=== PATIENT | male | born 1995 ===

== ENCOUNTER → 2019-09-26 | Outpatient (CLI) | payer OTHER ==
[2019-09-26 11:06] LABS: BASOPHILS ABSOLUTE AUTO 0.03 K/mm3 (0.00-0.23); BASOPHILS PERCENT AUTO 1 % (0-2); EOSINOPHILS ABSOLUTE AUTO 0.13 K/mm3 (0.00-0.68); EOSINOPHILS PERCENT AUTO 2 % (0-6); Hematocrit 42.7 % (37.0-53.0); Hemoglobin 15.2 g/dL (13.5-17.5); IMMATURE GRAN ABSOLUTE AUTO 0.01 K/mm3 (0.00-0.10); IMMATURE GRAN PERCENT AUTO 0 % (0-1); LYMPHOCYTES ABSOLUTE AUTO 2.07 K/mm3 (0.84-5.20); LYMPHOCYTES PERCENT AUTO 37 % (21-46); MONOCYTES ABSOLUTE AUTO 0.54 K/mm3 (0.16-1.47); MONOCYTES PERCENT AUTO 10 % (4-13); Mean Corpuscular HGB 30.8 pg (26.0-34.0); Mean Corpuscular HGB Conc 35.6 g/dL (31.5-36.5); Mean Corpuscular Volume 87 fL (80-100); Mean Platelet Volume 11.4 fL (9.1-12.4); NEUTROPHILS PERCENT AUTO 50 % (41-73); Platelet Count 189 K/mm3 (150-400); RDW Standard Deviation 37.8 fL (35.1-46.3); Red Blood Cell Count 4.93 M/mm3 (4.30-5.90); White Blood Cell Count 5.58 K/mm3 (4.00-11.30)
[2019-09-26 11:22] LABS: Alanine Aminotransfer (ALT/SGP 14 U/L (12-78); Albumin, Blood 4.6 g/dL (3.4-5.0); Albumin/Globulin Ratio 1.5 (0.8-1.8); Alk Phos 84 U/L (40-126); Anion Gap 10 mmol/L (6-16); Aspartate Aminotrans (AST/SGOT 16 U/L (12-37); Bilirubin, Total 0.7 mg/dL (0.1-1.0); Blood Urea Nitrogen 15 mg/dL (8-24); Bun/Creatinine Ratio 17.2 (12.0-20.0); CO2, Blood 27 mmol/L (21-32); Calcium, Blood 9.2 mg/dL (8.5-10.1); Chloride, Blood 105 mmol/L (98-108); Creatinine, Blood 0.87 mg/dL (0.60-1.20); Glomerular Filtration Rate >60 (60-); Glucose, Blood 98 mg/dL (70-99); Potassium, Blood 3.9 mmol/L (3.5-5.5); Sodium, Blood 142 mmol/L (136-145); Total Protein, Blood 7.6 g/dL (6.4-8.2)
== END | disposition home or self-care (01) ==
LOC: LAB SHORT 11:02 → LAB EV 11:02
PROVIDERS: Family Medicine
DX: R55 Syncope and collapse (principal)
CPT/HCPCS: 80053; 85025

== ENCOUNTER → 2020-02-07 | Outpatient (CLI) | payer OTHER | END | disposition home or self-care (01) | LOC: LAB SHORT 07:54 → LAB EV 07:54 | DX: J02.9 Acute pharyngitis, unspecified (principal) | CPT/HCPCS: 87081 ==

== ENCOUNTER 2020-06-24 09:31 | Emergency (ER) | payer OTHER ==
[~2020-06-24] VITALS: Ht 177.8 cm; Wt 67.1 kg
== END 2020-06-24 10:16 | disposition home or self-care (01) ==
LOC: ER 09:31
DX: J02.9 Acute pharyngitis, unspecified (principal)
CPT/HCPCS: 99282

== ENCOUNTER 2020-07-04 16:21 | Emergency (ER) | payer OTHER ==
[~2020-07-04] VITALS: Ht 177.8 cm; Wt 70.3 kg
[2020-07-04] MEDS ORDERED: CEPH500 PO (16:29)
[2020-07-04] MEDS ORDERED: Prozac20 MG PO (16:31)
== END 2020-07-04 16:32 | disposition home or self-care (01) ==
LOC: ER 16:21
DX: L03.114 Cellulitis of left upper limb (principal); S60.512A Abrasion of left hand, initial encounter; F17.200 Nicotine dependence, unspecified, uncomplicated; W45.8XXA Other foreign body or object entering through skin, initial encounter
CPT/HCPCS: 99283

== ENCOUNTER 2021-03-04 08:54 | Emergency (ER) | payer OTHER ==
[~2021-03-04] VITALS: Ht 177.8 cm; Wt 70.3 kg
[~2021-03-04 08:54] MED LIST: CEPH500 PO; Prozac20 MG PO
== END 2021-03-04 09:27 | disposition home or self-care (01) ==
LOC: ER 08:54
DX: S61.411D Laceration without foreign body of right hand, subsequent encounter (principal); F17.200 Nicotine dependence, unspecified, uncomplicated

== ENCOUNTER 2021-03-10 14:17 | Emergency (ER) | payer OTHER ==
[~2021-03-10] VITALS: Ht 175.3 cm; Wt 65.8 kg
[2021-03-10] MEDS ORDERED: CEPH500 PO (15:59)
== END 2021-03-10 16:04 | disposition home or self-care (01) ==
LOC: ER 14:17
DX: L03.011 Cellulitis of right finger (principal)
CPT/HCPCS: 99283

== ENCOUNTER 2022-01-05 17:06 | Observation (INO) | payer OTHER ==
[~2022-01-05] VITALS: Ht 175.3 cm; Wt 61.2 kg
[2022-01-05 17:52] LABS: BASOPHILS ABSOLUTE AUTO 0.02 K/mm3 (0.00-0.23); BASOPHILS PERCENT AUTO 0 % (0-2); EOSINOPHILS ABSOLUTE AUTO 0.05 K/mm3 (0.00-0.68); EOSINOPHILS PERCENT AUTO 1 % (0-6); IMMATURE GRAN ABSOLUTE AUTO 0.01 K/mm3 (0.00-0.10); IMMATURE GRAN PERCENT AUTO 0 % (0-1); LYMPHOCYTES ABSOLUTE AUTO 1.46 K/mm3 (0.84-5.20); LYMPHOCYTES PERCENT AUTO 23 % (21-46); MONOCYTES PERCENT AUTO 8 % (4-13); Mean Corpuscular HGB 20.4 pg (26.0-34.0); Mean Corpuscular HGB Conc 29.5 g/dL (31.5-36.5); Mean Corpuscular Volume 69 fL (80-100); Mean Platelet Volume 9.4 fL (9.1-12.4); NEUTROPHILS ABSOLUTE AUTO 4.19 K/mm3 (1.96-9.15); NEUTROPHILS PERCENT AUTO 67 % (41-73); Platelet Count 341 K/mm3 (150-400); RDW Coefficient Variation 17.1 % (11.7-14.2); RDW Standard Deviation 43.4 fL (35.1-46.3); Red Blood Cell Count 2.55 M/mm3 (4.30-5.90); White Blood Cell Count 6.23 K/mm3 (4.00-11.30)
[2022-01-05 17:55] LABS: Hematocrit 17.6 % (37.0-53.0); Hemoglobin 5.2 g/dL (13.5-17.5)
[2022-01-05 18:28] LABS: Albumin, Blood 4.1 g/dL (3.4-5.0); Albumin/Globulin Ratio 1.4 (0.8-1.8); Bilirubin, Total 0.2 mg/dL (0.1-1.0); Bun/Creatinine Ratio 12.3 (12.0-20.0); Calcium, Blood 8.9 mg/dL (8.5-10.1); Creatinine, Blood 0.98 mg/dL (0.60-1.20); Globulin, Blood 2.9 g/dL (2.2-4.0); Potassium, Blood 3.8 mmol/L (3.5-5.5)
[2022-01-05 20:16] LABS: Percent Saturation 1.4 % (20.0-50.0)
--- NOTE | 2022-01-05 22:34 | NUR ---
PATIENT TO ROOM PCU 1 FROM ER. PATIENT IS ALERT AND ORIENTED X4, INDEPENDENT IN ROOM. 02 SATS 100% ON RA, DENIES ANY SOB. HR SR AT 77, BP STABLE. PATIENT DENIES CP/PRESSURE. NO LONGER EXPERIENCING DIZZINESS. REPORTS HAVING DARK RED AND BRIGHT RED STOOL FREQUENTLY FOR THE LAST 4 DAYS. INDEPENDENT IN ROOM, ASSISTANCE WITH IV POLE TO THE BATHROOM. SECOND UNIT OF OF BLOOD CURRENTLY INFUSING. PATIENT STATES HE WANTS TO LEAVE ONCE BLOOD IS DONE TRANSFUSING.
[2022-01-06 00:42] LABS: Hematocrit 22.6 % (37.0-53.0); Hemoglobin 7.1 g/dL (13.5-17.5)
[2022-01-06 01:02] LABS: Bun/Creatinine Ratio 10.4 (12.0-20.0); Calcium, Blood 8.4 mg/dL (8.5-10.1); Creatinine, Blood 0.96 mg/dL (0.60-1.20); Potassium, Blood 3.6 mmol/L (3.5-5.5)
--- NOTE | 2022-01-06 01:30 | NUR ---
PATIENT REQUESTING TO LEAVE AMA. HOSPITALIST INFORMED OF MOST RECENT LABS AND PATIENT REQUEST TO LEAVE. EDUCATED PATIENT MULTIPLE TIMES ON RISKS OF LEAVING AMA, PATIENT VERBALIZED UNDERSTANDING OF RISKS. PATIENT LEFT AT 0125.
--- NOTE | 2022-01-06 01:39 | NUR ---
PATIENT ALERT AND ORIENTED WHEN HE LEFT AMA, AND DR. BRUSH NOTIFIED OF PATIENT LEAVING AMA.
== END 2022-01-06 01:25 | disposition left against medical advice (07) ==
LOC: ER 17:06 → PCU 17:07
PROVIDERS: Physician Assistant; ADMIT Family Medicine
DX: K62.6 Ulcer of anus and rectum (principal); D62 Acute posthemorrhagic anemia; Z86.010 Personal history of colon polyps; D50.0 Iron deficiency anemia secondary to blood loss (chronic); Z53.29 Procedure and treatment not carried out because of patient's decision for other reasons
CPT/HCPCS: 36415; 36430; 46600; 80048; 80053; 82272; 82607; 82728; 82746; 83540; 83550; 83690; 85014; 85018; 85025; 86850; 86900; 86901; 86923; 96365-59; 99285-25; C9113; G0378; J7030; P9016

== ENCOUNTER 2022-03-05 07:23 | Day surgery (SDC) | payer OTHER ==
[~2022-03-05] VITALS: Ht 177.8 cm; Wt 61.9 kg
[2022-03-05] MEDS ORDERED: FLUO10 (07:43)
--- NOTE | 2022-03-05 10:38 | NUR ---
03/05/22 Winter Lopez PT. OPENED EYES AT 0934. PT. DROWSY. PT. PULLING COVERS OVER HIS HEAD LIKE HE DID IN PREOP. PT. VERBALIZED HE WAS COLD, INSTRUCTED PT. THAT WE WOULD GET HIM A WARM BLANKET, WAS JUST UNHOOKING HIM FROM MONITOR BUT THEN PT. STARTED SHAKING, ROLLING HIS EYES BACK. DR. WALKER BACK IN ENDO ROOM WHEN PT. SHOWING THESE SYMPTOMS. VITALS ALL STABLE. PT. THEN STOPPED SHAKING, TELLING PT. HE WAS DONE WITH HIS PROCEDURE. PT. THEN COMING MORE COHERANT, AWAKE BUT THEN WOULD FALL BACK TO SLEEP. PT. THEN SAT UP STRAIGHT IN BED EYES WIDE OPEN LIKE WONDERING WHERE HE WAS. PT. REMINDED THAT HE WAS DONE WITH HIS COLONOSCOPY. PT. ABLE TO VERBALIZE WHERE HE WAS. PT. GIVEN A WARM BLANKET. PT. TAKEN TO SD VIA BED.(PT. WHEN SHAKING SEEMS TO BE LIMP.)
--- NOTE | 2022-03-05 10:41 | NUR ---
03/05/22 1041 Winter Bashir WHEN PT. TAKEN TO SD, PT. STILL DROWSY. VITALS TAKEN & STABLE. PT. DENIED ANY PAIN OR NAUSEA. PT. THEN WOULD FALL BACK TO SLEEP. PT. WOULD WAKE TO VOICE & WOULD FOLLOW COMMANDS. PT. GIVEN DAYANARA MIST PER HIS REQUEST. PT. MORE & MORE AWAKE TIME WENT ON. PT. DID VERBALIZE THAT HE DIDN'T REALIZE PROCEDURE WAS DONE. PT. DID VERBALIZE THAT HE WAS COMING MORE AWAKE & FEELING BETTER. SBA WHILE PT. GETTING DRESSED. PT. TAKEN OUT BY WC WITH SBA INTO SISTER'S CAR. PT. HOME WITH HIS PHONE & CLOTHES.
--- NOTE | 2022-03-05 10:54 | NUR ---
03/05/22 1054 Winter Bashir WHEN WALKING INTO PT. ROOM TO ASSESS PT. BEFORE COLONOSCOPY, PT. HAD HIS HEAD COVERED WITH BLANKET & WOULDN'T RESPOND TO QUESTIONS ASKED. THEN PT. STARTED RESPONDING TO QUESTIONS WHEN ASKED. PT. APPEARED DROWSY & WITHDRAWN.
== END 2022-03-05 10:15 | disposition home or self-care (01) ==
LOC: ORSCSDS 07:23
PROVIDERS: Surgery
PROC: 0DBE8ZX Excision of Large Intestine, Via Natural or Artificial Opening Endoscopic, Diagnostic (ICD-10-PCS; principal; 2022-03-05 08:45)
PROC: 0DBP8ZX Excision of Rectum, Via Natural or Artificial Opening Endoscopic, Diagnostic (ICD-10-PCS; principal; 2022-03-05 08:45)
DX: K62.5 Hemorrhage of anus and rectum (principal); D64.9 Anemia, unspecified; K64.1 Second degree hemorrhoids; F17.290 Nicotine dependence, other tobacco product, uncomplicated
CPT/HCPCS: 88305; J2405; J2704; J7120

== ENCOUNTER 2022-04-17 22:54 | Emergency (ER) | payer OTHER ==
[~2022-04-17] VITALS: Ht 175.3 cm; Wt 68.0 kg
[~2022-04-17 22:54] MED LIST changes: +FLUO10
[2022-04-18] MEDS ORDERED: LIDOCAINE1 EAC1 TOP (03:09)
[2022-04-18] MEDS ORDERED: IBUP600 PO (03:09)
[2022-04-18] MEDS ORDERED: Robaxin750 MG PO (03:09)
== END 2022-04-18 03:55 | disposition home or self-care (01) ==
LOC: ER 22:54
DX: S33.5XXA Sprain of ligaments of lumbar spine, initial encounter (principal); W51.XXXA Accidental striking against or bumped into by another person, initial encounter
CPT/HCPCS: A9270; J1885

== ENCOUNTER 2022-05-31 22:44 | Emergency (ER) | payer OTHER ==
[~2022-05-31] VITALS: Ht 177.8 cm; Wt 65.8 kg
[~2022-05-31 22:44] MED LIST changes: +IBUP600 PO; +LIDOCAINE1 EAC1 TOP; +Robaxin750 MG PO
== END 2022-05-31 23:38 | disposition home or self-care (01) ==
LOC: ER 22:44
DX: S46.912A Strain of unspecified muscle, fascia and tendon at shoulder and upper arm level, left arm, initial encounter (principal); Z79.899 Other long term (current) drug therapy; X50.9XXA Other and unspecified overexertion or strenuous movements or postures, initial encounter
CPT/HCPCS: 73030; 96372; 99283-25; J1885

== ENCOUNTER 2022-06-15 08:15 | Day surgery (SDC) | payer OTHER ==
[~2022-06-15] VITALS: Ht 177.8 cm; Wt 64.6 kg
--- NOTE | 2022-06-15 08:46 | NUR ---
Ambulatory in Day Surgery History, Chart, Medications and Allergies reviewed before start of procedure. Pre-Op teaching done. Pt verbalizes understanding. Patient States Post-Procedure ride home has been arranged.
--- NOTE | 2022-06-15 09:45 | NUR ---
[address] WALKER TO GIVE FLEETS ENEMA X1 PRIOR TO OR. TOOK PATIENT TO ENDO RM 1. UP TO BSC TO VOID AND BACK TO BED. ATTEMPED TO GIVE FLEETS ENEMA AND NOT ABLE TO PLACE DUE TO RESISTENCE. PATIENT ALREADY HAD SOME ANXIETY AND NOTED A VAGAL RESPONSE FROM ATTEMPTED FLEETS ENEMA. PT WAS ON MONITOR. WAS ABLE TO TALK WITH PATIENT FROM PASSING OUT AND SOME TREMORS NOTED. CALL FOR ASSISTANCE TO CHARGE NURSE AND GOT DR VERDUZCO TO COME TO BEDSIDE. 09 DR VERDUZCO GOT CONSENT AND NEW ORDER TO GIVE VERSED 1MG IV AND ATTEMPT FLEETS ENEMA. 09 VERSED 1MG IV GIVEN 09 ATTEMPTED FLEETS ENEMA BUT UNSUCCESSFUL DUE TO RESISTANCE. INFORMED DR WALKER. CALL FOR OR SITECORE DEVELOPER TO TAKE PATIENT TO OR. 0938 VERSED 1MG IV GIVEN PRIOR TO OR
--- NOTE | 2022-06-15 10:32 | NUR ---
06/15/22 1032 Ivelisse Cruz ENEMA ADMINISTERED PRIOR TO PROCEDURE IN OR BY [email or web address] AND [email or web address]
--- NOTE | 2022-06-15 13:18 | NUR ---
Patient up to Ambulate independently. Gait steady. Discharge instructions reviewed with patient. Patient verbalizes understanding. Copy given to patient to take home WELL "MOM"/MOTHER IN LAW. Patient States Post-Procedure ride home has been arranged. Discharged via wheelchair to private car for ride home. PT ABLE TO VOID PRIOR TO LEAVING. PT GIVEN VICKI SUPPLIES WELL THEY WERE CHANGED WHEN PT USED RESTROOM. PT TOLERATING PO AND PAIN MED.
== END 2022-06-15 13:18 | disposition home or self-care (01) ==
LOC: ORSCMMR 08:15 → ORD 09:00 → ORSCMMR 09:00
PROVIDERS: Surgery
PROC: 06BY0ZC Excision of Hemorrhoidal Plexus, Open Approach (ICD-10-PCS; principal; 2022-06-15 09:30)
DX: K64.2 Third degree hemorrhoids (principal); F41.9 Anxiety disorder, unspecified; F43.10 Post-traumatic stress disorder, unspecified; G40.909 Epilepsy, unspecified, not intractable, without status epilepticus; Z79.899 Other long term (current) drug therapy; F17.290 Nicotine dependence, other tobacco product, uncomplicated
CPT/HCPCS: 88304; A9270; J0694; J1100; J1885; J2060; J2250; J2405; J2704; J2795; J3010; J7120

== ENCOUNTER 2022-06-24 17:13 | Emergency (ER) | payer OTHER ==
[~2022-06-24] VITALS: Ht 175.3 cm; Wt 65.8 kg
== END 2022-06-24 19:09 | disposition home or self-care (01) ==
LOC: ER 17:13
DX: K59.00 Constipation, unspecified (principal); F17.200 Nicotine dependence, unspecified, uncomplicated; Z90.49 Acquired absence of other specified parts of digestive tract
CPT/HCPCS: 74018

== ENCOUNTER 2022-10-24 03:56 | Emergency (ER) | payer OTHER ==
[~2022-10-24] VITALS: Ht 177.8 cm; Wt 65.8 kg
[2022-10-24] MEDS ORDERED: IBUP800 PO (06:57)
[2022-10-24] MEDS ORDERED: CODACE30 PO (06:57)
[2022-10-24 07:24] VITALS: BP 120/84
== END 2022-10-24 08:10 | disposition home or self-care (01) ==
LOC: ER 03:56
DX: S93.402A Sprain of unspecified ligament of left ankle, initial encounter (principal); R07.89 Other chest pain; V86.55XA Driver of 3- or 4- wheeled all-terrain vehicle (ATV) injured in nontraffic accident, initial encounter; F17.200 Nicotine dependence, unspecified, uncomplicated
CPT/HCPCS: 71045; 71260; 73610; 99284-25; A9270; Q9967